=== PATIENT | female | born 1985 | race Caucasian/White ===

== ENCOUNTER 2016-06-03 12:01 | Emergency (ER) | payer BC ==
[~2016-06-03] VITALS: Ht 170.2 cm; Wt 118.2 kg
[~2016-06-03 12:01] MED LIST: BACTRIM DS 8001 TAB PO; BCP TD; FLEXERIL10 MG PO; IMITREX100 MG PO; LOESTRIN 1/20 28 DAY PO; LORTAB 5/500 501 TAB PO; NORCO 325 MG-7.1 TAB PO; PERCOCET 325 MG1 TA2 PO; PERCOCET 5/321 UDTAB PO; PHENERGAN 25 TA25 MG PO; PRILOSEC 20MG20 MG PO
[2016-06-03 12:09] VITALS: TEMP 98.1
[2016-06-03 13:06] LABS: BASO # 0.1 (0.0-0.2); BASO % 0.5 % (0.0-2.0); EOS # 0.2 (0.0-0.7); GRAN # 5.7 (1.4-6.5); GRAN % 55.2 % (42.2-75.2); HEMATOCRIT 41.1 % (37.0-47.0); LYMPH # 3.6 (1.2-3.4); LYMPH % 34.9 % (20.0-51.0); MEAN CELL VOLUME 87 fl (80.0-100.0); MEAN CORPUSCULAR HEMOGLOBIN 30 pg (27.0-31.0); MEAN CORPUSCULAR HGB CONC 34 g/dl (33.0-37.0); MEAN PLATELET VOLUME 10.1 fl (7.4-10.4); MONO # 0.7 (0.1-0.6); MONO % 6.9 % (1.7-9.3); PLATELET COUNT 325 K/mm3 (130-400); RED BLOOD COUNT 4.75 M/mm3 (4.10-5.30); REDCELL DISTRIBUTION WIDTH-CV 12.2 % (11.5-14.5); WHITE BLOOD COUNT 10.3 K/mm3 (4.8-10.8)
[2016-06-03 13:16] LABS: ADJUSTED CALCIUM 9.2 mg/dL (8.4-10.2); ALBUMIN 4.3 gm/dL (3.5-5.0); BILIRUBIN,TOTAL 0.7 mg/dL (0.0-1.0); C-REACTIVE PROTEIN 1.1 mg/dL (0.0-0.9); CALCIUM 9.4 mg/dL (8.4-10.2); CREATININE, serum 0.86 mg/dL (0.52-1.25); PHOSPHOROUS 3.9 mg/dL (2.5-4.5); POTASSIUM 3.8 mmol/L (3.4-5.0); TOTAL PROTEIN 7.7 gm/dL (6.4-8.2)
[2016-06-03 13:28] LABS: ERYTHROCYTE SEDIMENTATION RATE 15 mm/hr (0-20)
[2016-06-03 15:44] VITALS: BP 107/73; PULSE 76
[2016-06-03] MEDS ORDERED: MAG-OX 400400 MG/TAB PO (15:45)
== END 2016-06-03 16:03 | disposition home or self-care (01) ==
LOC: COL.ER 12:01
PROVIDERS: Emergency Medicine
DX: G43.809 Other migraine, not intractable, without status migrainosus (principal)
CPT/HCPCS: J1200; J2550; J7030

== ENCOUNTER → 2017-09-10 | Outpatient (CLI) | payer BC ==
[~2017-09-10] MED LIST changes: +MAG-OX 400400 MG/TAB PO
[2017-09-10 14:17] LABS: HEMATOCRIT 38.2 % (37.0-47.0); HEMOGLOBIN 12.6 g/dl (12.5-16.0); MEAN CELL VOLUME 84 fl (80.0-100.0); MEAN CORPUSCULAR HEMOGLOBIN 28 pg (27.0-31.0); MEAN CORPUSCULAR HGB CONC 33 g/dl (33.0-37.0); MEAN PLATELET VOLUME 9.9 fl (7.4-10.4); PLATELET COUNT 341 K/mm3 (130-400); RED BLOOD COUNT 4.57 M/mm3 (4.10-5.30); REDCELL DISTRIBUTION WIDTH-CV 13.2 % (11.5-14.5)
[2017-09-10 14:29] LABS: ALBUMIN 3.9 gm/dL (3.5-5.0); BILIRUBIN,TOTAL 0.5 mg/dL (0.0-1.0); CALCIUM 8.8 mg/dL (8.4-10.2); CREATININE, serum 0.76 mg/dL (0.52-1.25); POTASSIUM 4.1 mmol/L (3.4-5.0); TOTAL PROTEIN 7.4 gm/dL (6.4-8.2)
== END ==
LOC: COL.LAB 13:52 → COL.RAD 13:52
PROVIDERS: Family Medicine
DX: R10.31 Right lower quadrant pain (principal); R10.32 Left lower quadrant pain; R50.9 Fever, unspecified
CPT/HCPCS: Q9967

== ENCOUNTER 2017-09-14 18:27 | Emergency (ER) | payer BC ==
[~2017-09-14] VITALS: Ht 170.2 cm; Wt 122.7 kg
[2017-09-14 18:46] VITALS: TEMP 98.3
[2017-09-14 20:03] LABS: BASO % 0.5 % (0.0-2.0); EOS # 0.2 (0.0-0.7); EOS % 1.9 % (0-4.0); GRAN # 4.6 (1.4-6.5); GRAN % 52.1 % (42.2-75.2); HEMATOCRIT 40.7 % (37.0-47.0); HEMOGLOBIN 13.1 g/dl (12.5-16.0); LYMPH # 3.4 (1.2-3.4); LYMPH % 38.2 % (20.0-51.0); MEAN CELL VOLUME 86 fl (80.0-100.0); MEAN CORPUSCULAR HEMOGLOBIN 28 pg (27.0-31.0); MEAN CORPUSCULAR HGB CONC 32 g/dl (33.0-37.0); MEAN PLATELET VOLUME 9.8 fl (7.4-10.4); MONO # 0.6 (0.1-0.6); MONO % 6.8 % (1.7-9.3); PLATELET COUNT 343 K/mm3 (130-400); RED BLOOD COUNT 4.75 M/mm3 (4.10-5.30); REDCELL DISTRIBUTION WIDTH-CV 13.2 % (11.5-14.5)
[2017-09-14] MEDS ORDERED: TOPAMAX 100MG100 M1 PO (20:03)
[2017-09-14] MEDS ORDERED: CAMBIA50 MG PO (20:04)
[2017-09-14] MEDS ORDERED: EFFEXOR-XR150 MG PO (20:04)
[2017-09-14] MEDS ORDERED: ASPIRIN 81M81 MG/TA2 PO (20:04)
[2017-09-14] MEDS ORDERED: SPRIX15.75 MG/A NS (20:04)
[2017-09-14] MEDS ORDERED: FIORICET 325 MG1 TA1 PO (20:05)
[2017-09-14] MEDS ORDERED: ZOFRAN ODT4 MG PO (20:06)
[2017-09-14 20:07] LABS: ALBUMIN 4.1 gm/dL (3.5-5.0); BILIRUBIN,TOTAL 0.4 mg/dL (0.0-1.0); C-REACTIVE PROTEIN 1.3 mg/dL (0.0-0.9); CALCIUM 8.7 mg/dL (8.4-10.2); CREATININE, serum 0.76 mg/dL (0.52-1.25); POTASSIUM 3.9 mmol/L (3.4-5.0); TOTAL PROTEIN 7.8 gm/dL (6.4-8.2)
[2017-09-14 20:17] LABS: COLLECTION METHOD CLEAN CATCH
[2017-09-14 20:24] LABS: MUCOUS Present /lpf; PH 5 (5-8); SQUAMOUS EPITHELIAL 20-50 /hpf; URINE APPEARANCE Cloudy; URINE BACTERIA Many /hpf; URINE BILIRUBIN Negative (NEGATIVE); URINE BLOOD Negative (NEGATIVE); URINE COLOR Yellow; URINE GLUCOSE Negative (NEGATIVE); URINE KETONE Negative (NEGATIVE); URINE LEUKOCYTE ESTERASE 3+ (NEGATIVE); URINE NITRATE Negative (NEGATIVE); URINE PROTEIN(semi-quant) Negative (NEGATIVE); URINE UROBILINOGEN Negative (NEGATIVE)
[2017-09-14 20:25] LABS: ERYTHROCYTE SEDIMENTATION RATE 12 mm/hr (0-20)
[2017-09-14 20:45] LABS: COLLECTION METHOD CATHETER
[2017-09-14 20:49] LABS: MUCOUS Present /lpf; PH 5 (5-8); SQUAMOUS EPITHELIAL None Seen /hpf; URINE APPEARANCE Hazy; URINE BACTERIA Rare /hpf; URINE BILIRUBIN Negative (NEGATIVE); URINE BLOOD Negative (NEGATIVE); URINE COLOR Yellow; URINE GLUCOSE Negative (NEGATIVE); URINE KETONE Negative (NEGATIVE); URINE LEUKOCYTE ESTERASE Negative (NEGATIVE); URINE NITRATE Negative (NEGATIVE); URINE PROTEIN(semi-quant) Negative (NEGATIVE); URINE RBC 0-2 /hpf; URINE UROBILINOGEN Negative (NEGATIVE)
[2017-09-14] MEDS ORDERED: AMOXICILLIN 8751 TAB PO (21:07)
[2017-09-14] MEDS ORDERED: BENTYL 10MG10 MG/CAP PO (21:08)
[2017-09-14 23:55] VITALS: BP 92/61; PULSE 78
== END 2017-09-14 23:58 | disposition home or self-care (01) ==
LOC: COL.ER 18:27
PROVIDERS: Emergency Medicine
DX: R10.31 Right lower quadrant pain (principal); G43.909 Migraine, unspecified, not intractable, without status migrainosus; Z90.49 Acquired absence of other specified parts of digestive tract
CPT/HCPCS: J1170; J1885; J2550; J7030; Q9967

== ENCOUNTER 2017-09-17 06:50 | Day surgery (SDC) | payer BC ==
[~2017-09-17] VITALS: Ht 170.2 cm; Wt 127.7 kg
[~2017-09-17 06:50] MED LIST changes: +AMOXICILLIN 8751 TAB PO; +ASPIRIN 81M81 MG/TA2 PO; +BENTYL 10MG10 MG/CAP PO; +CAMBIA50 MG PO; +EFFEXOR-XR150 MG PO; +FIORICET 325 MG1 TA1 PO; +SPRIX15.75 MG/A NS; +TOPAMAX 100MG100 M1 PO; +ZOFRAN ODT4 MG PO
[2017-09-17] MEDS ORDERED: AMOXICILLIN 8751 TAB PO (07:10)
[2017-09-17] MEDS ORDERED: NORCO 325 MG-51 TAB PO (07:11)
[2017-09-17] MEDS ORDERED: FLAGYL500 MG PO (07:12)
[2017-09-17 07:32] VITALS: BP 119/90; PULSE 90; TEMP 97.9
[2017-09-17 08:45] VITALS: BP 104/68; PULSE 78; TEMP 98.1
[2017-09-17 09:00] VITALS: BP 97/69; PULSE 80
[2017-09-17 09:15] VITALS: BP 101/63; PULSE 76
[2017-09-17 09:30] VITALS: BP 101/75; PULSE 69
== END 2017-09-17 09:45 | disposition home or self-care (01) ==
LOC: SDCO 06:50
DX: K92.1 Melena (principal); R19.7 Diarrhea, unspecified; R10.31 Right lower quadrant pain; K64.0 First degree hemorrhoids; Z79.82 Long term (current) use of aspirin; Z79.899 Other long term (current) drug therapy
CPT/HCPCS: J2704; J3010; J7030

== ENCOUNTER → 2018-05-19 | Outpatient (CLI) | payer OTHER ==
[~2018-05-19] MED LIST changes: +FLAGYL500 MG PO; +NORCO 325 MG-51 TAB PO
== END ==
LOC: MHCPAIN 08:57
DX: G89.29 Other chronic pain (principal); M47.817 Spondylosis without myelopathy or radiculopathy, lumbosacral region; M54.16 Radiculopathy, lumbar region; M53.3 Sacrococcygeal disorders, not elsewhere classified
CPT/HCPCS: G0463

== ENCOUNTER → 2018-05-25 | Outpatient (CLI) | payer OTHER | LOC: MHCPAIN 12:10 | DX: M47.817 Spondylosis without myelopathy or radiculopathy, lumbosacral region (principal); M54.16 Radiculopathy, lumbar region | CPT/HCPCS: J1100; Q9967 ==

== ENCOUNTER → 2018-06-09 | Outpatient (CLI) | payer OTHER | LOC: MHCPAIN 08:45 | DX: G89.29 Other chronic pain (principal); M47.817 Spondylosis without myelopathy or radiculopathy, lumbosacral region; M54.16 Radiculopathy, lumbar region; M53.3 Sacrococcygeal disorders, not elsewhere classified | CPT/HCPCS: G0463 ==

== ENCOUNTER → 2018-06-25 | Outpatient (CLI) | payer OTHER | LOC: MHCPAIN 07:57 | DX: M47.817 Spondylosis without myelopathy or radiculopathy, lumbosacral region (principal); M54.16 Radiculopathy, lumbar region | CPT/HCPCS: J1100; Q9967 ==

== ENCOUNTER → 2018-07-21 | Outpatient (CLI) | payer OTHER | LOC: COL.RAD 22:32 | DX: M51.36 Other intervertebral disc degeneration, lumbar region (principal); M51.27 Other intervertebral disc displacement, lumbosacral region; R32 Unspecified urinary incontinence ==

== ENCOUNTER → 2018-07-28 | Outpatient (CLI) | payer OTHER | LOC: MHCPAIN 15:34 | DX: G89.29 Other chronic pain (principal); M47.817 Spondylosis without myelopathy or radiculopathy, lumbosacral region; M54.16 Radiculopathy, lumbar region; M53.3 Sacrococcygeal disorders, not elsewhere classified | CPT/HCPCS: G0463 ==